=== PATIENT | male | born 1955 | race Caucasian/White ===

== ENCOUNTER 2018-11-30 10:45 | Emergency (ER) | payer BC ==
[~2018-11-30] VITALS: Ht 175.3 cm; Wt 83.9 kg
[2018-11-30 12:24] LABS: BASO % 0 % (0-3); EOS % 0 % (0-3); HEMATOCRIT 44.8 % (39.0-53.0); HEMOGLOBIN 15.2 g/dL (13.0-17.5); LYMPH # 0.7 x10^3/uL (1.0-4.8); LYMPH % 8 % (24-48); MEAN CORPUSCULAR HEMOGLOBIN 31 pg (25-35); MEAN CORPUSCULAR HGB CONC 34 g/dL (31-37); MEAN CORPUSCULAR VOLUME 90 fL (79-100); MONO # 0.4 x10^3/uL (0.0-1.1); MONO % 5 % (0-9); NEUT # 7.9 x10^3/uL (1.8-7.7); NEUT % 87 % (31-73); PLATELET COUNT 237 x10^3/uL (140-400); RED BLOOD COUNT 4.97 x10^6/uL (4.30-5.70); RED CELL DISTRIBUTION WIDTH 13.8 % (11.5-14.5); WHITE BLOOD COUNT 9.1 x10^3/uL (4.0-11.0)
[2018-11-30 12:37] LABS: CALCIUM 8.9 mg/dL (8.5-10.1); CREATININE 1.1 mg/dL (0.7-1.3); GFR 67.6
[2018-11-30 12:40] LABS: ALBUMIN 3.9 g/dL (3.4-5.0); ALBUMIN/GLOBULIN RATIO 1.1 (1.0-1.7); TOTAL BILIRUBIN 0.8 mg/dL (0.2-1.0); TOTAL PROTEIN 7.5 g/dL (6.4-8.2)
[2018-11-30] MEDS ORDERED: TAMSULOSIN 0.4 MG CAP.ER.24H. PO ONE (12:45)
[2018-11-30] MEDS ORDERED: ONDANSETRON PF 4 MG/2 ML VIAL. IV ONE ×2 (12:45→17:00)
[2018-11-30] MEDS ORDERED: IV NORMAL SALINE 1000ML BAG 1,000 ML IV ONE (12:45)
[2018-11-30] MEDS ORDERED: MORPHINE SULFATE 10 MG/ML VIAL. IV ONE ×2 (12:45→17:00)
[2018-11-30 12:52] LABS: % BANDS 17 % (0-9); % BASOS 1 % (0-3); % EOS 1 % (0-5); % LYMPHS 10 % (24-48); % MONOS 6 % (0-10); % SEGS 65 % (35-66); PLT ESTIMATE ADEQUATE (ADEQUATE)
--- NOTE | 2018-11-30 13:23 | RAD ---
Examination: CT ABDOMEN PELVIS WO CONTRAST History: Flank pain, kidney stones Comparison/Correlation: None Findings: Axial images of the abdomen and pelvis were obtained without contrast. Sagittal and coronal reformatted images were provided. Minimal linear atelectasis involving the right lung base is evident. Small hiatal hernia. Liver, spleen, pancreas, and adrenal glands are unremarkable. Right renal upper pole punctate calculus is present. No right hydronephrosis. Left hydronephrosis is identified due to ureteropelvic junction calculus involvement. This may represent 1 calculus or possibly a conglomeration of calculi. This calculus measures up to 0.8 diameter. Left renal interpolar calyceal calculus measuring 0.5 cm diameter is nonobstructive. Ureters are unremarkable. Urinary bladder is unremarkable. Appendix is unremarkable. Moderate quantity of stool in the colon noted. No extraluminal gas. No bowel obstruction. Prostate gland is enlarged measuring up to 4.9 cm transverse. Surgical clips at the superior scrotal region noted bilaterally. Bony structures are unremarkable. Impression: Left ureteral pelvic junction 0.8 cm diameter obstructive calculus. Nonobstructive bilateral renal calculi also are present. Prostatomegaly. Hiatal hernia. PQRS Compliance Statement: One or more of the following individualized dose reduction techniques were utilized for this examination: 1. Automated exposure control 2. Adjustment of the mA and/or kV according to patient size 3. Use of iterative reconstruction technique Electronically signed by: Jorge Weir MD (11/30/2018 1:20 PM) [facility]
[2018-11-30 15:45] LABS: BILIRUBIN,URINE NEGATIVE (NEG); CLARITY,URINE CLOUDY; COLOR,URINE AMBER; NITRITE,URINE NEGATIVE (NEG); PROTEIN,URINE 30 mg/dL (NEG-TRACE)
[2018-11-30 15:52] LABS: AMPHETAMINE/METHAMPHETAMINE NEG (NEG); BARBITURATES NEG (NEG); BENZODIAZEPINES NEG (NEG); CANNABINOIDS NEG (NEG); COCAINE NEG (NEG); METHADONE NEG (NEG); OPIATES POS (NEG); PHENCYCLIDINE NEG (NEG)
[2018-11-30 16:02] LABS: BACTERIA,URINE 0 /HPF (0-FEW); RBC,URINE TNTC /HPF (0-2); WBC,URINE OCC /HPF (0-4)
--- NOTE | 2018-11-30 16:27 | PHYS DOC ---
Past Medical History Past Medical History: High Cholesterol, Hypertension Past Surgical History: Other Additional Past Surgical Histo: BILAT CARPAL TUNNEL,KIDNEY STONE REMOVAL Alcohol Use: None Drug Use: None Adult General Chief Complaint Chief Complaint: FLANK PAIN HPI HPI Patient is a 63 year old male with history of high cholesterol, hypertension who presents to the ED today complaining of 9 out of 10 left flank pain radiating to the left groin that began at 5 AM in the morning. Patient is also complaining of an episode of nausea and vomiting. Patient denies any fever, urgency, frequency, dysuria but reports hematuria. Review of Systems Review of Systems Constitutional: Denies fever or chills [] Eyes: Denies change in visual acuity, redness, or eye pain [] HENT: Denies nasal congestion or sore throat [] Respiratory: Denies cough or shortness of breath [] Cardiovascular: No additional information not addressed in HPI [] GI: Denies abdominal pain, nausea, vomiting, bloody stools or diarrhea [] : Reports left flank pain. Reports hematuria. Denies dysuria Musculoskeletal: Denies back pain or joint pain [] Integument: Denies rash or skin lesions [] Neurologic: Denies headache, focal weakness or sensory changes [] All other systems were reviewed and found to be within normal limits, except as documented in this note. Current Medications Current Medications Current Medications Medications (Trade) Dose Ordered Sig/Claire Start Time Stop Time Status Last Admin Dose Admin Morphine Sulfate (Morphine Sulfate) 5 mg 1X ONCE 11/30/18 12:45 11/30/18 12:46 DC 11/30/18 13:02 5 MG Ondansetron HCl (Zofran) 4 mg 1X ONCE 11/30/18 12:45 11/30/18 12:46 DC 11/30/18 13:02 4 MG Sodium Chloride 1,000 ml @ 1,000 mls/hr 1X ONCE 11/30/18 12:45 11/30/18 13:44 DC 11/30/18 13:02 1,000 MLS/HR Tamsulosin HCl (Flomax) 0.4 mg 1X ONCE 11/30/18 12:45 11/30/18 12:46 DC 11/30/18 13:03 0.4 MG Allergies Allergies Allergies Coded Allergies Type Severity Reaction Last Updated Verified No Known Drug Allergies 11/30/18 No Physical Exam Physical Exam Constitutional: Well developed, well nourished, no acute distress, non-toxic appearance. [] HENT: Normocephalic, atraumatic, bilateral external ears normal, oropharynx moist, no oral exudates, nose normal. [] Eyes: PERRLA, EOMI, conjunctiva normal, no discharge. [] Neck: Normal range of motion, no tenderness, supple, no stridor. [] Cardiovascular:Heart rate regular rhythm, no murmur [] Lungs & Thorax: Bilateral breath sounds clear to auscultation [] Abdomen: Bowel sounds normal, soft, no tenderness, no masses, no pulsatile masses. [] Skin: Warm, dry, no erythema, no rash. [] Back: No tenderness, mild left CVA tenderness. [] Extremities: No tenderness, no cyanosis, no clubbing, ROM intact, no edema. [] Neurologic: Alert and oriented X 3, normal motor function, normal sensory f unction, no focal deficits noted. [] Psychologic: Affect normal, judgement normal, mood normal. [] Current Patient Data Vital Signs Vital Signs Date Time Temp Pulse Resp B/P (MAP) Pulse Ox O2 Delivery O2 Flow Rate FiO2 11/30/18 14:05 64 15 134/78 (96) 98 Nasal Cannula 2.0 11/30/18 11:55 98.5 98.5 Lab Values Laboratory Tests Test 11/30/18 12:02 11/30/18 15:35 White Blood Count 9.1 x10^3/uL (4.0-11.0) Red Blood Count 4.97 x10^6/uL (4.30-5.70) Hemoglobin 15.2 g/dL (13.0-17.5) Hematocrit 44.8 % (39.0-53.0) Mean Corpuscular Volume 90 fL (79-100) Mean Corpuscular Hemoglobin 31 pg (25-35) Mean Corpuscular Hemoglobin Concent 34 g/dL (31-37) Red Cell Distribution Width 13.8 % (11.5-14.5) Platelet Count 237 x10^3/uL (140-400) Neutrophils (%) (Auto) 87 % (31-73) H Lymphocytes (%) (Auto) 8 % (24-48) L Monocytes (%) (Auto) 5 % (0-9) Eosinophils (%) (Auto) 0 % (0-3) Basophils (%) (Auto) 0 % (0-3) Neutrophils # (Auto) 7.9 x10^3/uL (1.8-7.7) H Lymphocytes # (Auto) 0.7 x10^3/uL (1.0-4.8) L Monocytes # (Auto) 0.4 x10^3/uL (0.0-1.1) Eosinophils # (Auto) 0.0 x10^3/uL (0.0-0.7) Basophils # (Auto) 0.0 x10^3/uL (0.0-0.2) Segmented Neutrophils % 65 % (35-66) Band Neutrophils % 17 % (0-9) H Lymphocytes % 10 % (24-48) L Monocytes % 6 % (0-10) Eosinophils % 1 % (0-5) Basophils % 1 % (0-3) Platelet Estimate Adequate (ADEQUATE) Sodium Level 141 mmol/L (136-145) Potassium Level 4.0 mmol/L (3.5-5.1) Chloride Level 102 mmol/L (98-107) Carbon Dioxide Level 27 mmol/L (21-32) Anion Gap 12 (6-14) Blood Urea Nitrogen 22 mg/dL (8-26) Creatinine 1.1 mg/dL (0.7-1.3) Estimated GFR (Cockcroft-Gault) 67.6 BUN/Creatinine Ratio 20 (6-20) Glucose Level 197 mg/dL (70-99) H Calcium Level 8.9 mg/dL (8.5-10.1) Total Bilirubin 0.8 mg/dL (0.2-1.0) Aspartate Amino Transferase (AST) 19 U/L (15-37) Alanine Aminotransferase (ALT) 24 U/L (16-63) Alkaline Phosphatase 99 U/L (46-116) Total Protein 7.5 g/dL (6.4-8.2) Albumin 3.9 g/dL (3.4-5.0) Albumin/Globulin Ratio 1.1 (1.0-1.7) Lipase 66 U/L (73-393) L Ethyl Alcohol Level < 10 mg/dL (0-10) Urine Collection Type Unknown Urine Color Carmen Urine Clarity Cloudy Urine pH 6.0 Urine Specific [place] 1.025 Urine Protein 30 mg/dL (NEG-TRACE) Urine Glucose (UA) 500 mg/dL (NEG) Urine Ketones (Stick) 40 mg/dL (NEG) Urine Blood Large (NEG) Urine Nitrite Negative (NEG) Urine Bilirubin Negative (NEG) Urine Urobilinogen Dipstick 1.0 mg/dL (0.2 mg/dL) Urine Leukocyte Esterase Small (NEG) Urine RBC Tntc /HPF (0-2) Urine WBC Occ /HPF (0-4) Urine Squamous Epithelial Cells None /LPF Urine Bacteria 0 /HPF (0-FEW) Urine Mucus Slight /LPF Urine Opiates Screen Pos (NEG) Urine Methadone Screen Neg (NEG) Urine Barbiturates Neg (NEG) Urine Phencyclidine Screen Neg (NEG) Urine Amphetamine/Methamphetamine Neg (NEG) Urine Benzodiazepines Screen Neg (NEG) Urine Cocaine Screen Neg (NEG) Urine Cannabinoids Screen Neg (NEG) Urine Ethyl Alcohol Neg (NEG) Laboratory Tests 11/30/18 12:02 Laboratory Tests 11/30/18 12:02 EKG EKG [] Radiology/Procedures Radiology/Procedures []PROCEDURE: CT ABDOMEN PELVIS WO CONTRAST Examination: CT ABDOMEN PELVIS WO CONTRAST History: Flank pain, kidney stones Comparison/Correlation: None Findings: Axial images of the abdomen and pelvis were obtained without contrast. Sagittal and coronal reformatted images were provided. Minimal linear atelectasis involving the right lung base is evident. Small hiatal hernia. Liver, spleen, pancreas, and adrenal glands are unremarkable. Right renal upper pole punctate calculus is present. No right hydronephrosis. Left hydronephrosis is identified due to ureteropelvic junction calculus involvement. This may represent 1 calculus or possibly a conglomeration of calculi. This calculus measures up to 0.8 diameter. Left renal interpolar calyceal calculus measuring 0.5 cm diameter is nonobstructive. Ureters are unremarkable. Urinary bladder is unremarkable. Appendix is unremarkable. Moderate quantity of stool in the colon noted. No extraluminal gas. No bowel obstruction. Prostate gland is enlarged measuring up to 4.9 cm transverse. Surgical clips at the superior scrotal region noted bilaterally. Bony structures are unremarkable. Impression: Left ureteral pelvic junction 0.8 cm diameter obstructive calculus. Nonobstructive bilateral renal calculi also are present. Prostatomegaly. Hiatal hernia. PQRS Compliance Statement: One or more of the following individualized dose reduction techniques were utilized for this examination: 1. Automated exposure control 2. Adjustment of the mA and/or kV according to patient size 3. Use of iterative reconstruction technique Electronically signed by: Jorge Jose MD (11/30/2018 1:20 PM) [facility] DICTATED and SIGNED BY: JORGE JOSE MD DATE: 11/30/18 1320 Course & Med Decision Making Course & Med Decision Making Pertinent Labs and Imaging studies reviewed. (See chart for details) This is a 63-year-old male patient with history of kidney stones presenting today with left flank pain that began this morning at 5 AM. CBC with normal WBC, CMP-no acute findings. CT of the abdomen and pelvic was noted for -Left ureteral pelvic junction 0.8 cm diameter obstructive calculus. Urine analysis is noted for small amount of leukocytes. Patient was given IV fluids, Flomax, and pain medicine. Pain is well managed. Consulted with , he requested we discharge patient and he can follow-up as an outpatient in the clinic. Patient was discharged with Flomax, Cipro, hydrocodone, Zofran. Provided return precautions and discharged in stable condition. Dragon Disclaimer Dragon Disclaimer This electronic medical record was generated, in whole or in part, using a voice recognition dictation system. Departure Departure Impression: Primary Impression: Pyelonephritis Additional Impression: Kidney stones Disposition: 01 HOME, SELF-CARE Condition: STABLE Referrals: JAYLON ALBERT MD (PCP) WONG MUSE MD Call him tomorrow morning and set up a follow-up appointment Patient Instructions: Kidney Stones, Pyelonephritis, Adult, [id number] Additional Instructions: You were elevated in the emergency room and noted to have a kidney stone, we provided you a urologist, contact his office tomorrow morning and set up a follow-up appointment. Take the prescribed pain medicine as needed for pain. Scripts Hydrocodone Bit/Acetaminophen (HYDROCODONE-APAP 7.5-325 ) 1 Tab Tablet 1-2 TAB PO PRN Q6HRS PRN for PAIN, #30 TAB 0 Refills Prov: MUTUNGA,NATHAN BED SETTER 11/30/18 Ondansetron Hcl (ZOFRAN) 4 Mg Tablet 1 TAB PO Q6HRS, #20 TAB Prov: MUTUNGA,NATHAN BED SETTER 11/30/18 Ciprofloxacin Hcl (CIPRO) 500 Mg Tablet 1 TAB PO BID, #14 TAB Prov: NATHAN HILTON APRN 11/30/18 Tamsulosin Hcl (FLOMAX) 0.4 Mg Cap.er.24h 1 CAP PO DAILY, #7 CAP 0 Refills Prov: NATHAN HILTON APRN 11/30/18 Problem Qualifiers NATHAN HILTON APRN Nov 30, 2018 16:27
[2018-11-30 16:35] VITALS: BP 137/67
[2018-11-30] MEDS ORDERED: HYDR-2765 PO (16:45)
[2018-11-30] MEDS ORDERED: ONDA4TAB7 PO (16:45)
[2018-11-30] MEDS ORDERED: CIPR500T94 PO (16:45)
[2018-11-30] MEDS ORDERED: TAMS0.4C97 PO (16:45)
[2018-11-30] MEDS ORDERED: KETOROLAC 30 MG/ML VIAL. IV ONE (17:00)
== END 2018-11-30 17:16 | disposition home or self-care (01) ==
LOC: ER 10:45
DX: N12 Tubulo-interstitial nephritis, not specified as acute or chronic (principal); N13.2 Hydronephrosis with renal and ureteral calculous obstruction; K44.9 Diaphragmatic hernia without obstruction or gangrene; E78.00 Pure hypercholesterolemia, unspecified; I10 Essential (primary) hypertension; R11.2 Nausea with vomiting, unspecified
CPT/HCPCS: 36415; 74176; 80053; 80307; 81001; 83690; 85007; 85025; 87086; 96361; 96374; 96375; 96376; 99285; G0480; J1885; J2270; J2405; J7030